=== PATIENT | male | born 1955 | race Caucasian/White ===

== ENCOUNTER 2018-04-29 11:41 | Inpatient (IN) ==
--- OUTSIDE RECORDS SUMMARY | 2018-04-29 16:00 | External Medical Summary | Clinical Summary ---
:1955 Author Organization [facility] Address [address] [place] [address] Care Team Providers Name Role Phone [facility] Primary Care Provider Allergies Active Allergy Reactions Severity Noted Date Comments Morphine Other (See Comments) Low 07/14/2014 Makes me "wig out: Current Medications Prescription Sig. Disp. Refills Start Date End Date Status Cholecalciferol (VITAMIN Take 1,000 Units Active D) 1000 UNITS TABS by mouth 2 (two) times daily. rosuvastatin (CRESTOR) 40 Take 40 mg by Active MG tablet mouth daily. 1/2 tab at bedtime cetirizine (ZYRTEC) 10 MG Take 10 mg by Active tablet mouth daily. potassium chloride Take 20 mEq by Active (KLOR-CON) 20 MEQ packet mouth daily. ranitidine (ZANTAC) 150 MG Take 150 mg by Active tablet mouth 2 (two) times daily. pantoprazole (PROTONIX) 40 Take 40 mg by Active MG tablet mouth 2 (two) times daily. DICLOFENAC PO Take 50 mg by Active mouth 2 (two) times daily. pregabalin (LYRICA) 100 MG Take 100 mg by Active capsule mouth 4 (four) times daily. aspirin 81 MG EC tablet Take 81 mg by Active mouth daily. zolpidem (AMBIEN) 10 MG Take 10 mg by Active tablet mouth nightly as needed for Sleep. traZODone (DESYREL) 50 MG Take 50 mg by Active tablet mouth nightly. 3 tabs at bedtime. hydrocodone-acetaminophen Take 1 tablet by Active (NORCO) 10-325 MG mouth every 6 (six) hours as needed for Pain. Active Problems Problem Noted Date Pain 07/14/2014 Social History Tobacco Use Types Packs/Day Years Used Date Light Tobacco Smoker Tobacco Cessation: Ready to Quit: No Alcohol Use Drinks/Week oz/Week Comments No Sex Assigned at Date Recorded Not on file Last Filed Vital Signs Vital Sign Reading Time Taken Blood Pressure 119/77 08/19/2014 10:44 AM [employer] Pulse 57 08/19/2014 10:44 AM [employer] Temperature - - Respiratory Rate - - Oxygen Saturation - - Inhaled Oxygen Concentration - - Weight 90.3 kg (199 lb) 08/19/2014 9:26 AM [employer] Height 175.3 cm (5' 9.02") 08/19/2014 9:26 AM [employer] Body Mass Index 29.37 08/19/2014 9:26 AM [employer] Plan of Treatment Health Maintenance Due Date Last Done Comments Hepatitis C Screening 1955 DTaP,Tdap,and Td Vaccines (1 - Tdap) 1973 Colon Cancer Screening 2004 Zoster Recombinant Vaccine (RZV,Shingrix) (1 of 2 - [facility] 2004 2 Dose Standard) Influenza Vaccine (#1) 2018 Results Not on filefrom Last 3 Months
--- OUTSIDE RECORDS SUMMARY | 2018-04-29 16:01 | External Medical Summary | Clinical Summary ---
:1955 Author Organization [facility] Address [address] [place] [address] Care Team Providers Name Role Phone Raegan Andera MD Unavailable Raegan Andrea MD Primary Care Provider Source Comments Some departments are not documenting in the electronic medical record. If you do not see the information that you expected, contact Release of Information in the Health Information Management department at [phone] for further assistance in locating additional records.[facility] Social History Tobacco Use Types Packs/Day Years Used Date Never Assessed Sex Assigned at Date Recorded Not on file Plan of Treatment Health Maintenance Due Date Last Done Comments HEPATITIS C SCREENING 1955 PHYSICAL (COMPREHENSIVE) EXAM 1961 PERTUSSIS VACCINE 1965 HIV SCREENING 1969 TETANUS VACCINE 1971 COLORECTAL CANCER SCREENING 2004 SHINGLES RECOMBINANT VACCINE (1 of 2) 2004 INFLUENZA VACCINE 07/01/2018
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
[2018-04-29 16:29] VITALS: BMI 20.1
[2018-04-29] MEDS ORDERED: SALIVA SUBSTITUTE MOUTHWASH 237ml PO PRN (16:41)
[2018-04-29] MEDS ORDERED: LIDOCAINE VISCOUS 2% ORAL LIQUID 15ml PO PRN (16:41)
[2018-04-29] MEDS: NYSTATIN 500,000 units/5 ml ORAL LIQUID PO SCH ×3 (17:00→20:52)
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
[2018-04-29] MEDS ORDERED: [UNRECOGNIZED DRUG - OTHER] LEFT EYE SCH (20:00)
[2018-04-29] MEDS: BALANCED SALT OP SCH ×2 (20:35→23:32)
[2018-04-29] MEDS: BACITRACIN OINT 15 GM TP SCH (20:36)
[2018-04-29] MEDS: LACRI-LUBE EYE OINT 3.5gm LEFT EYE SCH ×2 (20:36→23:32)
[2018-04-29] MEDS: INSULIN DETEMIR 100unit/ml INJECTION SQ SCH (20:37)
[2018-04-29] MEDS: CIPROFLOXACIN 750 MG TABLET PO SCH (20:37)
[2018-04-29] MEDS: MetroNIDAZOLE 500 MG TABLET PO SCH (20:37)
[2018-04-29] MEDS: OXYCODONE 10 MG/0.5 ML PEG PRN (20:45)
[2018-04-30] MEDS: OXYCODONE 10 MG/0.5 ML PEG PRN ×6 (00:30→21:13)
[2018-04-30] MEDS: BALANCED SALT OP SCH ×6 (04:12→23:22)
[2018-04-30] MEDS: LACRI-LUBE EYE OINT 3.5gm LEFT EYE SCH ×6 (04:13→23:23)
[2018-04-30] MEDS: BACITRACIN OINT 15 GM TP SCH ×3 (08:29→21:58)
[2018-04-30] MEDS: FLUCONAZOLE 100 MG TABLET PO SCH (08:32)
[2018-04-30] MEDS: NYSTATIN 500,000 units/5 ml ORAL LIQUID PO SCH ×4 (08:32→21:58)
[2018-04-30] MEDS: MetroNIDAZOLE 500 MG TABLET PO SCH ×2 (08:32→16:30)
[2018-04-30] MEDS: ASPIRIN 325 MG TABLET PO SCH (08:32)
[2018-04-30] MEDS: CIPROFLOXACIN 750 MG TABLET PO SCH ×2 (08:33→21:58)
[2018-04-30] MEDS: SERTRALINE 50 MG TABLET PO SCH (08:33)
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
[2018-04-30] MEDS: INSULIN DETEMIR 100unit/ml INJECTION SQ SCH (21:58)
[2018-05-01] MEDS: OXYCODONE 10 MG/0.5 ML PEG PRN ×6 (01:17→21:51)
[2018-05-01] MEDS: BALANCED SALT OP SCH ×5 (04:09→20:21)
[2018-05-01] MEDS: LACRI-LUBE EYE OINT 3.5gm LEFT EYE SCH ×5 (04:10→20:21)
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
--- NOTE | 2018-05-01 08:38 | General Surgery Progress Note ---
Subjective Patient reports: afebrile Narrative: He has been getting bolus g-tube feeds, the formula is leaking out the tube os. States the skin is tender and red around the opening. Denies nausea. Denies chest pain, SOA. - Vital Signs Last Vital Signs Temp 98.1 F 05/01/18 07:37 Pulse 64 05/01/18 07:37 Resp 18 05/01/18 07:37 BP 110/67 05/01/18 07:37 Pulse Ox 98 05/01/18 07:37 - Laboratory Result Diagrams: 04/30/18 04:21 04/30/18 04:21 - Abnormal Exam Eyes: other (patch over the left eye, states he sees only shadows from the left eye) Abdominal: other (Formula bubbling out of g-tube fistula when sitting and the ABD saturated with formula. When supine leakage stopped long enough to "fix" the tube leaking problem. Flange/disc is at the "7" level, balloon checked and did have 6 ml fluid per G-tube label for this particular gastostomy tube. Skin red and excoriated about 2 cm radius around the tube. Tender when washed. ) Additional Abnormal Findings: maxillofacial flap/graft with some sutures visible, face misshapen with concavity on the left - Normal Exam General: awake, alert, oriented, no acute distress Neck: other (old tracheostomy site healed) Respiratory: clear bilaterally, no labored breathing Abdominal: soft Psychiatric: normal affect Assessment and Plan (1) Attention to gastrostomy tube Current Visit: Yes Status: Acute (2) Dysphagia Current Visit: Yes Status: Acute Qualifiers: Dysphagia type: oral phase Qualified Code(s): R13.11 - Dysphagia, oral phase Plan: The flange/disc of the G-tube had migrated up the tube to the 7 level. This should be at the 4-4.5 level to provide a seal between the balloon and the flange, and umbilical tape used to try to secure the flange/disc at the "4" level. Skin washed and Calmoseptine applied then single layer gauze around the G-Tube. Will have nursing treat with Calmoseptine BID and watch for flange migration. If there continues to be problems with leakage, we can consider changing the G- tube (since it is not a PEG) out for one that is slightly bigger and has a 10 ml balloon. Continue tube feeds and activity as directed. Will check on him periodically during his stay, and please call if concerns arise. Hospital Course Summary Disclaimer: The visit summary below is not to be considered part of the above Progress Note. Hospital Course: 04/29/18 Agree with admission/orders per Dr. Stone. Tube feeds: Bolus feeds, 1 can 2-Aroldo HN with 2 packets of Beneprotein QID. Monitor blood sugars. Alexeiemshalonda HS. Diet: NPO except for swishes and expectoration. Surgeon recommends waiting at least 2 more weeks before attempting oral intake. The edges of the flap need to be completely sealed down before oral intake occurs. Nystatin for thrush. Resume chlorhexidine when thrush improves. Neb treatments PRN Oral care Q2h, eye care Q4h Zoloft for depression.
[2018-05-01] MEDS: BACITRACIN OINT 15 GM TP SCH ×2 (09:40→20:24)
[2018-05-01] MEDS: MetroNIDAZOLE 500 MG TABLET PO SCH ×2 (09:40→18:06)
[2018-05-01] MEDS: ASPIRIN 325 MG TABLET PO SCH (09:40)
[2018-05-01] MEDS: CIPROFLOXACIN 750 MG TABLET PO SCH ×2 (09:41→21:27)
[2018-05-01] MEDS: FLUCONAZOLE 100 MG TABLET PO SCH (09:42)
[2018-05-01] MEDS: NYSTATIN 500,000 units/5 ml ORAL LIQUID PO SCH ×4 (09:42→20:23)
[2018-05-01] MEDS: SERTRALINE 50 MG TABLET PO SCH (09:42)
[2018-05-01] MEDS: CALMOSEPTINE OINTMENT 113gm TUBE TP SCH ×2 (09:45→21:27)
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
[2018-05-01] MEDS: CHLORHEXIDINE 0.12% ORAL RINSE MM SCH ×3 (16:34→21:26)
[2018-05-01] MEDS: INSULIN DETEMIR 100unit/ml INJECTION SQ SCH (21:51)
[2018-05-02] MEDS: CHLORHEXIDINE 0.12% ORAL RINSE MM SCH ×12 (00:42→23:05)
[2018-05-02] MEDS: BALANCED SALT OP SCH ×8 (00:43→20:45)
[2018-05-02] MEDS: LACRI-LUBE EYE OINT 3.5gm LEFT EYE SCH ×8 (00:43→20:45)
[2018-05-02] MEDS: OXYCODONE 10 MG/0.5 ML PEG PRN ×6 (01:52→23:06)
--- NOTE | 2018-05-02 08:16 | General Surgery Progress Note ---
Subjective Narrative: He states the g-tube is working better, minimal to no leaking of formula. The area under the flange is ammonia distiller when the Calmoseptine "wears off." - Vital Signs Last Vital Signs Temp 97.7 F 05/02/18 07:41 Pulse 56 L 05/02/18 07:41 Resp 18 05/02/18 07:41 BP 126/59 05/02/18 07:41 Pulse Ox 91 05/02/18 07:41 - Laboratory Result Diagrams: 04/30/18 04:21 04/30/18 04:21 - Abnormal Exam Eyes: other (patch over the left eye) Skin: maxillofacial deformities unchanged - Normal Exam General: oriented, resting, awakens easily, no acute distress Cardiovascular: regular rate Respiratory: no labored breathing Abdominal: other (gauze at g-tube site about 1/2 saturated with combination Calmoseptine and perhaps some formula. The Calmoseptine is "thinner" than the original and soaks into the gauze to some extent. Area of excoriation is decreaseing, perhaps only 1 cm radius from the tube now and superficial abrasion has already seen significant improvement.) Psychiatric: normal affect Assessment and Plan (1) Attention to gastrostomy tube Current Visit: Yes Status: Acute (2) Dysphagia Current Visit: Yes Status: Acute Qualifiers: Dysphagia type: oral phase Qualified Code(s): R13.11 - Dysphagia, oral phase Plan: "Tightening up" the g-tube seems to have taken care of the formula leaking, with very minimal if any leakage. If the leaking does not completely stop we can still replace the g-tube with a slightly larger tube with a larger balloon if needed. Continue BID cleansing and Calmoseptine and a single layer of gauze around the tube. Hospital Course Summary Disclaimer: The visit summary below is not to be considered part of the above Progress Note. Hospital Course: 04/29/18 Agree with admission/orders per Dr. Stone. Tube feeds: Bolus feeds, 1 can 2-Aroldo HN with 2 packets of Beneprotein QID. Monitor blood sugars. Levemir HS. Diet: NPO except for swishes and expectoration. Surgeon recommends waiting at least 2 more weeks before attempting oral intake. The edges of the flap need to be completely sealed down before oral intake occurs. Nystatin for thrush. Resume chlorhexidine when thrush improves. Neb treatments PRN Oral care Q2h, eye care Q4h Zoloft for depression.
[2018-05-02] MEDS: MetroNIDAZOLE 500 MG TABLET PO SCH ×2 (10:09→18:30)
[2018-05-02] MEDS: CIPROFLOXACIN 750 MG TABLET PO SCH ×2 (10:09→20:45)
[2018-05-02] MEDS: FLUCONAZOLE 100 MG TABLET PO SCH (10:09)
[2018-05-02] MEDS: SERTRALINE 50 MG TABLET PO SCH (10:09)
[2018-05-02] MEDS: ASPIRIN 325 MG TABLET PO SCH (10:09)
[2018-05-02] MEDS: CALMOSEPTINE OINTMENT 113gm TUBE TP SCH ×2 (10:10→20:46)
[2018-05-02] MEDS: BACITRACIN OINT 15 GM TP SCH ×2 (10:10→20:45)
[2018-05-02] MEDS: NYSTATIN 500,000 units/5 ml ORAL LIQUID PO SCH ×5 (10:10→23:00)
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
--- NOTE | 2018-05-02 15:30 | IRU Team Meeting ---
IRU Team Meeting - Nursing Bladder Management Level of Assist: Independent Bladder Frequency of Accidents: No accidents Bowel Assistive Devices Utilized:: Medication Bowel Management Level of Assist: Modified Independent Bowel Frequency of Accidents: No accidents Vital Signs: Vital Signs - 24 hr 05/01/18 16:00 05/01/18 22:01 05/02/18 07:41 Temperature 97.6 F 98.1 F 97.7 F Pulse Rate 58 L 51 L 56 L Respiratory Rate 18 Blood Pressure 96/65 98/57 126/59 Pulse Oximetry 98 91 91 Current Medications: Aspirin (Asa) 325 mg PO DAILY [facility] Last Admin: 05/02/18 10:09 Dose: 325 mg Bacitracin (Bacitracin Oint) 1 applic TP BID [facility] Last Admin: 05/02/18 10:10 Dose: Not Given Calamine/Phenol (Risamine Oint) 1 applic TP BID [facility] Last Admin: 05/02/18 10:10 Dose: 1 applic Chlorhexidine Gluconate (Peridex) 15 ml MM Q2HR [facility] Last Admin: 05/02/18 14:14 Dose: Not Given Ciprofloxacin (Cipro 750 Mg) 750 mg PO BID [facility] Last Admin: 05/02/18 10:09 Dose: 750 mg Fluconazole (Diflucan 100 Mg Tablet) 200 mg PO DAILY [facility] Last Admin: 05/02/18 10:09 Dose: 200 mg Insulin Detemir (Levemir) 8 unit SQ HS [facility] Last Admin: 05/01/18 21:51 Dose: 8 unit Lidocaine HCl (Xylocaine Viscous 2%) 15 ml PO Q2HR PRN PRN Reason: Pain Metronidazole (Flagyl) 500 mg PO BIDWM [facility] Last Admin: 05/02/18 10:09 Dose: 500 mg Multi-Ingredient Lotion (Lacrilube) 1 applic LEFT EYE Q4HR [facility] Last Admin: 05/02/18 13:27 Dose: 1 applic Nystatin (Mycostatin) 5 ml PO QID [facility] Last Admin: 05/02/18 13:27 Dose: Not Given Oxycodone/Acetaminophen (Oxycodone Oral Liquid) 20 mg PEG Q4H PRN PRN Reason: Pain Last Admin: 05/02/18 14:40 Dose: 20 mg Saliva Substitute (Biotene Dry Mouth Oral Rinse) 1 ml PO Q4HR PRN PRN Reason: Dry mouth Last Admin: 05/01/18 16:33 Dose: 1 ml Sertraline HCl (Zoloft) 50 mg PO DAILY [facility] Last Admin: 05/02/18 10:09 Dose: 50 mg Sod Cl/Ca Cl/Mg Cl/Pot Cl (Bss) 15 ml OP Q4HR [facility] Last Admin: 05/02/18 13:27 Dose: 15 ml Zolpidem Tartrate (Ambien) 5 mg PO HS PRN PRN Reason: Insomnia Current Medical Issues: Multiple wounds, multiple fractures which are healing, skin flap on the floor of mouth, pain in face secondary to multiple fractures Comments: I certify that I personally led the interdisciplinary team meeting and agree with comments, barriers and goals indicated. Team meeting was held in the patient's room with the patient and the following family members present: patient alone Mr. Osorio is refusing oral rinses including nystatin and chlorhexidine. He continues to request pain medication for his multiple fractures in his face. Wounds are looking okay. Cooperative with therapy. PEG tube started to leak but that was addressed with surgery and no further leakage noted. Tolerating tube feedings adequately. - Dietary Dietary is addressing issues with regard to his tube feedings. Seems to be tolerating these well. Weight by report is down 30 pounds since January prior to hospitalization. He is receiving approximately 2375 halle with 99.5 g of protein. - Speech Therapy Speech therapy working with patient. He has required some encouragement to participate. He is able to complete his tasks appropriately with only minimal assistance. Patient not safe for swallowing. - Physical Therapy Bed, Chair, Wheelchair Transfer Assist: Stand By Assist/Supervision Ambulation Ability: Contact Guard Assistance Ambulation Distance: 500 Stair Climbing Ability: Contact Guard Assistance Number of Steps Climbed: 12 Car Transfer Ability: Contact Guard Assistance Comments: Patient is concerned about his strength. He is exhibiting several episodes of loss of balance with ambulation. - Occupational Therapy Eating Ability: Maximal Assistance Grooming Ability: Patient Refuses Bathing Ability: Stand By Assist/Supervision Upper Body Dressing Ability: Independent Lower Body Dressing Ability: Stand By Assist/Supervision Tub Transfer Assist: Contact Guard Assistance Toileting Assist: Stand By Assist/Supervision Toilet Transfer Assist: Stand By Assist/Supervision Comments: Patient requires encouragement to participate in ADL tasks. He is displaying episodes of loss of balance particularly in the bathroom. - Goals Physical Therapy Goals: 05/02/18: 1.) Modified Mayo with all transfers and ambulation with least restrictive device. 2.) Score of 50/56 on ARIAS balance assessment. Occupational Therapy Goals: OT goals: 1.) Lower body dressing tasks independently. 2.) Laundry tasks w/ modified independence. Speech Therapy Goals: Expression: STG: Patient will provide 3 specific words to describe a given picture or event requiring minimal cues to word retrieval. Pt will define abstract words/concepts with 80% accuracy requiring minimal cues to expansion. Memory: STG: The patient will recall functional information following a delayed and immediate recall requiring minimal cues to increase accuracy. Pt will recall information discussed in therapy by retelling and answering questions with 80% accuracy and requiring minimal cues. - Barriers to Discharge Barriers to Attaining Goals: Balance (proprioceptive and balance exercises are offered to address imbalance.), Other (education provided with regard to wound care, diabetic management including administration of insulin, and tube feeding management. Reduced safety awareness addressed via education.) - Care Plan Anticipated Length of Stay (days): 5 Anticipated DC Destination: Home, Self Care, Home Health Service I have led this team conference and agree with the plan. Interventions/Goals: Patient continues to require PT and OT to address loss of balance episodes. Wounds appear to be healing adequately. Anticipate he will be stable for dismissal early next week. However he continues to require significant educational input and encouragement to address low motivation.
[2018-05-02] MEDS: INSULIN DETEMIR 100unit/ml INJECTION SQ SCH (20:46)
[2018-05-02] MEDS: ZOLPIDEM 5 MG TABLET PO PRN (22:33)
[2018-05-03] MEDS: CHLORHEXIDINE 0.12% ORAL RINSE MM SCH ×10 (02:03→20:55)
[2018-05-03] MEDS: BALANCED SALT OP SCH ×6 (02:03→20:57)
[2018-05-03] MEDS: LACRI-LUBE EYE OINT 3.5gm LEFT EYE SCH ×6 (02:03→20:55)
[2018-05-03] MEDS: OXYCODONE 10 MG/0.5 ML PEG PRN ×4 (05:44→19:54)
[2018-05-03] MEDS: MetroNIDAZOLE 500 MG TABLET PO SCH ×2 (10:38→18:37)
[2018-05-03] MEDS: FLUCONAZOLE 100 MG TABLET PO SCH (10:38)
[2018-05-03] MEDS: SERTRALINE 50 MG TABLET PO SCH (10:38)
[2018-05-03] MEDS: CIPROFLOXACIN 750 MG TABLET PO SCH ×2 (10:38→20:57)
[2018-05-03] MEDS: NYSTATIN 500,000 units/5 ml ORAL LIQUID PO SCH ×4 (10:39→20:57)
[2018-05-03] MEDS: ASPIRIN 325 MG TABLET PO SCH (10:39)
[2018-05-03] MEDS: BACITRACIN OINT 15 GM TP SCH ×2 (10:41→20:55)
[2018-05-03] MEDS: CALMOSEPTINE OINTMENT 113gm TUBE TP SCH ×2 (10:43→20:55)
--- NOTE | 2018-05-03 11:12 | Wound Care Progress Note ---
Wound Center Progress Note: Pt seen for wound follow up. Pt lying in bed. Pt reports his face hurts and it is very hard to keep the packing in to the L mandible wound. León GUERRERO in room assessing pt, states she will change the packing dressing today.
--- NOTE | 2018-05-03 13:48 | Wound Care Progress Note ---
Wound Center Progress Note: Pt seen for wound follow up. Nursing staff called to wound center reporting difficulty with packing L mandible wound. Pt just finishing up with OT, placed in bed for wound assessment. L mandible: improving, area cleaned/crusts removed , lightly packed with 1/4" saline moistened packing strips (approximally 4-5 " strip) covered with small mepilex. Change dressing per order BID.
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
[2018-05-03] MEDS: INSULIN DETEMIR 100unit/ml INJECTION SQ SCH (20:57)
[2018-05-03] MEDS: ZOLPIDEM 5 MG TABLET PO PRN (21:15)
[2018-05-04] MEDS: CHLORHEXIDINE 0.12% ORAL RINSE MM SCH ×12 (00:42→20:41)
[2018-05-04] MEDS: OXYCODONE 10 MG/0.5 ML PEG PRN ×5 (00:43→21:02)
[2018-05-04] MEDS: LACRI-LUBE EYE OINT 3.5gm LEFT EYE SCH ×6 (00:45→20:47)
[2018-05-04] MEDS: BALANCED SALT OP SCH ×7 (00:45→20:46)
[2018-05-04] MEDS: MetroNIDAZOLE 500 MG TABLET PO SCH ×2 (10:32→18:20)
[2018-05-04] MEDS: NYSTATIN 500,000 units/5 ml ORAL LIQUID PO SCH ×4 (10:33→20:43)
[2018-05-04] MEDS: ASPIRIN 325 MG TABLET PO SCH (10:33)
[2018-05-04] MEDS: CIPROFLOXACIN 750 MG TABLET PO SCH ×2 (10:33→20:47)
[2018-05-04] MEDS: SERTRALINE 50 MG TABLET PO SCH (10:33)
[2018-05-04] MEDS: FLUCONAZOLE 100 MG TABLET PO SCH (10:33)
[2018-05-04] MEDS: BACITRACIN OINT 15 GM TP SCH ×2 (10:34→20:47)
[2018-05-04] MEDS: CALMOSEPTINE OINTMENT 113gm TUBE TP SCH ×2 (10:34→20:38)
[2018-05-04] MEDS ORDERED: PROMETHAZINE 25 MG SUPPOSITORY PR PRN (14:34)
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
[2018-05-04] MEDS: INSULIN DETEMIR 100unit/ml INJECTION SQ SCH (20:45)
[2018-05-04] MEDS: ZOLPIDEM 5 MG TABLET PO PRN (21:02)
[2018-05-05] MEDS: BALANCED SALT OP SCH ×6 (01:06→21:37)
[2018-05-05] MEDS: CHLORHEXIDINE 0.12% ORAL RINSE MM SCH ×13 (01:06→23:00)
[2018-05-05] MEDS: LACRI-LUBE EYE OINT 3.5gm LEFT EYE SCH ×6 (01:06→21:37)
[2018-05-05] MEDS: OXYCODONE 10 MG/0.5 ML PEG PRN ×5 (01:12→21:41)
[2018-05-05] MEDS: PANTOPRAZOLE 40 MG TABLET PEG SCH ×2 (05:18→06:25)
[2018-05-05] MEDS ORDERED: PANTOPRAZOLE 40 MG INJECTION IVP SCH (09:00)
[2018-05-05] MEDS: NYSTATIN 500,000 units/5 ml ORAL LIQUID PO SCH ×4 (09:35→21:35)
[2018-05-05] MEDS: FLUCONAZOLE 100 MG TABLET PO SCH (09:35)
[2018-05-05] MEDS: ASPIRIN 325 MG TABLET PO SCH (09:35)
[2018-05-05] MEDS: SERTRALINE 50 MG TABLET PO SCH (09:35)
[2018-05-05] MEDS: CIPROFLOXACIN 750 MG TABLET PO SCH ×2 (09:36→21:41)
[2018-05-05] MEDS: BACITRACIN OINT 15 GM TP SCH ×2 (09:36→21:38)
[2018-05-05] MEDS: CALMOSEPTINE OINTMENT 113gm TUBE TP SCH ×2 (09:36→21:36)
[2018-05-05] MEDS: MetroNIDAZOLE 500 MG TABLET PO SCH ×2 (09:36→17:57)
--- NOTE | 2018-05-05 14:32 | XRay Report ---
INDICATION: cough PROCEDURE: CHEST 2-VIEWS UPRIGHT (PA & LAT) Encounter: Initial COMPARISON: None FINDINGS: The lungs are clear without evidence of focal abnormal airspace opacity. There is no pleural effusion or pneumothorax. The heart size, mediastinal contours and pulmonary vascularity are within normal limits. IMPRESSION: No acute cardiopulmonary disease. .
[2018-05-05] MEDS: INSULIN DETEMIR 100unit/ml INJECTION SQ SCH (21:39)
[2018-05-05] MEDS: ZOLPIDEM 5 MG TABLET PO PRN (21:43)
[2018-05-06] MEDS: CHLORHEXIDINE 0.12% ORAL RINSE MM SCH ×12 (01:00→21:34)
[2018-05-06] MEDS: LACRI-LUBE EYE OINT 3.5gm LEFT EYE SCH ×6 (03:15→20:24)
[2018-05-06] MEDS: BALANCED SALT OP SCH ×6 (03:15→20:25)
[2018-05-06] MEDS: PANTOPRAZOLE 40 MG TABLET PEG SCH (06:45)
[2018-05-06] MEDS: OXYCODONE 10 MG/0.5 ML PEG PRN ×4 (06:45→21:41)
[2018-05-06] MEDS: CALMOSEPTINE OINTMENT 113gm TUBE TP SCH ×3 (06:59→20:26)
[2018-05-06] MEDS: FLUCONAZOLE 100 MG TABLET PO SCH (09:47)
[2018-05-06] MEDS: NYSTATIN 500,000 units/5 ml ORAL LIQUID PO SCH ×4 (09:47→21:34)
[2018-05-06] MEDS: MetroNIDAZOLE 500 MG TABLET PO SCH ×2 (09:47→18:36)
[2018-05-06] MEDS: CIPROFLOXACIN 750 MG TABLET PO SCH ×2 (09:47→20:30)
[2018-05-06] MEDS: ASPIRIN 325 MG TABLET PO SCH (09:47)
[2018-05-06] MEDS: SERTRALINE 50 MG TABLET PO SCH (09:47)
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
[2018-05-06] MEDS: BACITRACIN OINT 15 GM TP SCH ×2 (11:42→21:33)
--- NOTE | 2018-05-06 15:18 | Wound Care Progress Note ---
Wound Center Progress Note: Pt seen for wound care follow up. Pt lying in bed, states his jaw is sore. According to nurse pt has been refusing dressing changes to L mandible. Pt agreed to have dressing changed today. L mandible: Wound cleaned with NS, crusts removed. Lightly packed with saline moistened 1/4" plain packing gauze, covered with Mepilex. Change dressing per order. 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
[2018-05-06] MEDS: INSULIN DETEMIR 100unit/ml INJECTION SQ SCH (20:27)
[2018-05-06] MEDS: ZOLPIDEM 5 MG TABLET PO PRN (21:35)
[2018-05-07] MEDS: CHLORHEXIDINE 0.12% ORAL RINSE MM SCH ×12 (00:05→23:00)
[2018-05-07] MEDS: LACRI-LUBE EYE OINT 3.5gm LEFT EYE SCH ×6 (00:46→21:42)
[2018-05-07] MEDS: BALANCED SALT OP SCH ×6 (00:46→21:42)
[2018-05-07] MEDS: OXYCODONE 10 MG/0.5 ML PEG PRN ×4 (01:49→21:45)
[2018-05-07] MEDS: PANTOPRAZOLE 40 MG TABLET PEG SCH (05:54)
[2018-05-07] MEDS: BACITRACIN OINT 15 GM TP SCH ×2 (08:57→21:43)
[2018-05-07] MEDS: ASPIRIN 325 MG TABLET PO SCH (08:58)
[2018-05-07] MEDS: NYSTATIN 500,000 units/5 ml ORAL LIQUID PO SCH ×4 (08:58→21:43)
[2018-05-07] MEDS: SERTRALINE 50 MG TABLET PO SCH (08:58)
[2018-05-07] MEDS: MetroNIDAZOLE 500 MG TABLET PO SCH ×2 (08:58→18:03)
[2018-05-07] MEDS: CIPROFLOXACIN 750 MG TABLET PO SCH ×2 (08:58→21:43)
[2018-05-07] MEDS: FLUCONAZOLE 100 MG TABLET PO SCH (08:58)
[2018-05-07] MEDS: CALMOSEPTINE OINTMENT 113gm TUBE TP SCH ×2 (08:59→21:43)
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
--- NOTE | 2018-05-07 10:40 | General Surgery Progress Note ---
Subjective Narrative: Patient is without any new complaints today. He states that the leakage from the gastrostomy tube is minimal and occurs infrequently. He still experiences some irritation around the gastrostomy opening. Staff are treating this with Calmoseptine as directed. - Vital Signs Last Vital Signs Temp 98.4 F 05/07/18 07:32 Pulse 62 05/07/18 07:32 Resp 16 05/07/18 07:32 BP 121/61 05/07/18 07:32 Pulse Ox 96 05/07/18 07:32 - Laboratory Result Diagrams: 05/04/18 15:10 05/04/18 15:10 - Abnormal Exam Eyes: other (patch over the left eye) Abdominal: other (gastrostomy tube disc has migrated up to almost the 5.5-6 level. I was able to slide the flange back down to level 4. Slight erythema around the gastrostomy tube but no actual skin breakdown.) Skin: No change in maxillofacial deformity. - Normal Exam General: awake, alert, oriented Respiratory: no labored breathing Abdominal: soft, non-tender Psychiatric: normal affect Assessment and Plan (1) Attention to gastrostomy tube Current Visit: Yes Status: Acute (2) Dysphagia Current Visit: Yes Status: Acute Qualifiers: Dysphagia type: oral phase Qualified Code(s): R13.11 - Dysphagia, oral phase Plan: The flange of the gastrostomy tube migrated "up the tube" and I was able to work if flange down to skin level again at level 4. The excoriation around the tube is improving with Calmoseptine. We'll just need to check the tube and try and keep the flange down The "4 level. " Hospital Course Summary Disclaimer: The visit summary below is not to be considered part of the above Progress Note. Hospital Course: 04/29/18 Agree with admission/orders per Dr. Stone. Tube feeds: Bolus feeds, 1 can 2-Aroldo HN with 2 packets of Beneprotein QID. Monitor blood sugars. Levemir HS. Diet: NPO except for swishes and expectoration. Surgeon recommends waiting at least 2 more weeks before attempting oral intake. The edges of the flap need to be completely sealed down before oral intake occurs. Nystatin for thrush. Resume chlorhexidine when thrush improves. Neb treatments PRN Oral care Q2h, eye care Q4h Zoloft for depression. 05/04/18 Nausea, weakness, cough -- labs ordered, along with UA and CXR. CBC, CMP both stable CXR personally reviewed - no infiltrates noted May have phenergan suppository PRN nausea.
--- NOTE | 2018-05-07 14:31 | Progress Note ---
Progress Note: Mr. Osorio is been refusing therapy. I discussed with him his current emotional situation/states. He says he continues to be somewhat depressed as well as not sure what the future holds. In view of his recent impulsive suicide attempt as well as his depression, we will ask psychiatry to evaluate him.
[2018-05-07] MEDS: INSULIN DETEMIR 100unit/ml INJECTION SQ SCH (21:44)
[2018-05-07] MEDS: ZOLPIDEM 5 MG TABLET PO PRN (21:45)
[2018-05-08] MEDS: CHLORHEXIDINE 0.12% ORAL RINSE MM SCH ×11 (01:00→21:34)
[2018-05-08] MEDS: OXYCODONE 10 MG/0.5 ML PEG PRN ×5 (04:19→21:51)
[2018-05-08] MEDS: PANTOPRAZOLE 40 MG TABLET PEG SCH (06:33)
[2018-05-08] MEDS: LACRI-LUBE EYE OINT 3.5gm LEFT EYE SCH ×6 (06:37→20:18)
[2018-05-08] MEDS: BALANCED SALT OP SCH ×6 (06:37→20:17)
[2018-05-08] MEDS: NYSTATIN 500,000 units/5 ml ORAL LIQUID PO SCH ×4 (09:00→21:35)
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
[2018-05-08] MEDS: ASPIRIN 325 MG TABLET PO SCH (10:40)
[2018-05-08] MEDS: BACITRACIN OINT 15 GM TP SCH ×2 (10:40→20:16)
[2018-05-08] MEDS: CIPROFLOXACIN 750 MG TABLET PO SCH ×2 (10:40→20:19)
[2018-05-08] MEDS: MetroNIDAZOLE 500 MG TABLET PO SCH ×2 (10:40→18:12)
[2018-05-08] MEDS: FLUCONAZOLE 100 MG TABLET PO SCH (10:40)
[2018-05-08] MEDS: CALMOSEPTINE OINTMENT 113gm TUBE TP SCH ×2 (10:40→20:17)
[2018-05-08] MEDS: SERTRALINE 50 MG TABLET PO SCH (10:40)
--- NOTE | 2018-05-08 10:57 | Progress Note ---
Progress Note: Patient evaluated by psychiatry. Patient is not feeling well physically today. Recommend increasing Zoloft to 100mg PO daily after GI upset and nausea/emesis has resolved (as SSRIs can exacerbate this). Also, strongly recommend continued psychiatric care and therapy weekly or every 2 weeks after discharge as he has not had any since leaving the medical hospital and this will be essential for his mental health. Will complete full note later today.
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
--- NOTE | 2018-05-08 15:44 | XRay Report ---
Indication: abd pain with tube feedings PROCEDURE: XR abdomen 2V: Encounter: Initial Comparison: None Findings: Lung bases are grossly clear. No free air. Gastrostomy tube projecting over the body of the stomach. Surgical clips in the medial right abdomen. The bowel gas pattern is nonobstructive and nonspecific. Scattered nondifferential air-fluid levels seen within the colon. Impression: Possible ileus or gastroenteritis. Contrast injection under fluoroscopy could be performed through the gastrostomy tube if there is concern for tube dislodgment or displacement. .
[2018-05-08] MEDS: METOCLOPRAMIDE 5mg TABLET PEG SCH ×2 (18:12→20:19)
[2018-05-08] MEDS: INSULIN DETEMIR 100unit/ml INJECTION SQ SCH (20:19)
[2018-05-08] MEDS: ZOLPIDEM 5 MG TABLET PO PRN (21:51)
[2018-05-09] MEDS: CHLORHEXIDINE 0.12% ORAL RINSE MM SCH ×12 (00:26→21:22)
[2018-05-09] MEDS: LACRI-LUBE EYE OINT 3.5gm LEFT EYE SCH ×6 (00:26→21:29)
[2018-05-09] MEDS: BALANCED SALT OP SCH ×6 (00:26→21:29)
[2018-05-09] MEDS: OXYCODONE 10 MG/0.5 ML PEG PRN ×4 (04:25→21:31)
[2018-05-09] MEDS: PANTOPRAZOLE 40 MG TABLET PEG SCH (06:05)
[2018-05-09] MEDS: METOCLOPRAMIDE 5mg TABLET PEG SCH ×4 (06:05→15:18)
[2018-05-09] MEDS: MetroNIDAZOLE 500 MG TABLET PO SCH ×2 (08:57→17:30)
[2018-05-09] MEDS: CIPROFLOXACIN 750 MG TABLET PO SCH ×2 (08:58→21:30)
[2018-05-09] MEDS: ASPIRIN 325 MG TABLET PO SCH (08:58)
[2018-05-09] MEDS: FLUCONAZOLE 100 MG TABLET PO SCH (08:58)
[2018-05-09] MEDS: CALMOSEPTINE OINTMENT 113gm TUBE TP SCH ×2 (09:03→21:30)
--- NOTE | 2018-05-09 09:05 | Progress Note ---
Progress Note: Elevated potassium (5.3), specimen was hemolyzed. Repeat K+ later this afternoon. Remainder of labs and vitals are stable.
[2018-05-09] MEDS: SERTRALINE 50 MG TABLET PO SCH (09:12)
[2018-05-09] MEDS: NYSTATIN 500,000 units/5 ml ORAL LIQUID PO SCH ×4 (09:12→21:22)
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
[2018-05-09] MEDS: BACITRACIN OINT 15 GM TP SCH ×2 (11:55→21:29)
--- NOTE | 2018-05-09 13:12 | IRU Team Meeting ---
IRU Team Meeting - Nursing Bladder Management Level of Assist: Independent Bladder Frequency of Accidents: No accidents Bowel Assistive Devices Utilized:: Medication Bowel Management Level of Assist: Independent Bowel Frequency of Accidents: No accidents Vital Signs: Vital Signs - 24 hr 05/08/18 15:44 05/08/18 19:23 05/09/18 08:00 Temperature 97.6 F 97.8 F 97.6 F Pulse Rate 62 80 58 L Respiratory Rate 18 16 14 Blood Pressure 129/70 121/65 105/61 Pulse Oximetry 96 95 96 Current Medications: Aspirin (Asa) 325 mg PO DAILY [facility] Last Admin: 05/09/18 08:58 Dose: 325 mg Bacitracin (Bacitracin Oint) 1 applic TP BID [facility] Last Admin: 05/09/18 11:55 Dose: 1 applic Calamine/Phenol (Risamine Oint) 1 applic TP BID [facility] Last Admin: 05/09/18 09:03 Dose: 1 applic Chlorhexidine Gluconate (Peridex) 15 ml MM Q2HR [facility] Last Admin: 05/09/18 11:58 Dose: Not Given Ciprofloxacin (Cipro 750 Mg) 750 mg PO BID [facility] Last Admin: 05/09/18 08:58 Dose: 750 mg Fluconazole (Diflucan 100 Mg Tablet) 200 mg PO DAILY [facility] Last Admin: 05/09/18 08:58 Dose: 200 mg Insulin Detemir (Levemir) 8 unit SQ HS [facility] Last Admin: 05/08/18 20:19 Dose: 8 unit Lidocaine HCl (Xylocaine Viscous 2%) 15 ml PO Q2HR PRN PRN Reason: Pain Metoclopramide HCl (Reglan) 5 mg PEG ACHS [facility] Last Admin: 05/09/18 11:52 Dose: Not Given Metronidazole (Flagyl) 500 mg PO BIDWM [facility] Last Admin: 05/09/18 08:57 Dose: 500 mg Multi-Ingredient Lotion (Lacrilube) 1 applic LEFT EYE Q4HR [facility] Last Admin: 05/09/18 11:57 Dose: 1 applic Nystatin (Mycostatin) 5 ml PO QID [facility] Last Admin: 05/09/18 09:12 Dose: Not Given Oxycodone/Acetaminophen (Oxycodone Oral Liquid) 20 mg PEG Q4H PRN PRN Reason: Pain Last Admin: 05/09/18 12:10 Dose: 20 mg Pantoprazole Sodium (Protonix Tab) 40 mg PEG ACB [facility] Last Admin: 05/09/18 06:05 Dose: 40 mg Promethazine HCl (Phenergan Supp) 25 mg SD Q6H PRN Saliva Substitute (Biotene Dry Mouth Oral Rinse) 1 ml PO Q4HR PRN PRN Reason: Dry mouth Last Admin: 05/01/18 16:33 Dose: 1 ml Sertraline HCl (Zoloft) 50 mg PO DAILY [facility] Last Admin: 05/09/18 09:12 Dose: 50 mg Sod Cl/Ca Cl/Mg Cl/Pot Cl (Bss) 15 ml OP Q4HR [facility] Last Admin: 05/09/18 11:57 Dose: 15 ml Zolpidem Tartrate (Ambien) 5 mg PO HS PRN PRN Reason: Insomnia Last Admin: 05/08/18 21:51 Dose: 5 mg Current Medical Issues: Dysphagia with requirement for tube feedings, wound healing on left lower mandible and left eye area, graft healing on floor of mouth, diabetes requiring insulin Comments: I certify that I personally led the interdisciplinary team meeting and agree with comments, barriers and goals indicated. Team meeting was held in the patient's room with the patient and the following family members present: patient alone Mr. Osorio is struggling with nausea and dry heaves with tube feedings. This was present about 4 or 5 days ago then improved after we reduced the amount of free water given. It then has recurred over the last 24-36 hours. However, he is having bowel movements and has had no vomiting. There is no abdominal pain. Residual tube feeding is minimal. We will treat with slow installation of tube feedings along with the use of Zofran. Blood sugars typically less than 200. - Speech Therapy Speech therapy discontinued patient as of 05/08/2018. - Physical Therapy Bed, Chair, Wheelchair Transfer Assist: Modified Independent Ambulation Ability: Modified Independent Ambulation Distance: 500 Stair Climbing Ability: Stand By Assist/Supervision Number of Steps Climbed: 12 Car Transfer Ability: Stand By Assist/Supervision Comments: Patient is variably compliant with physical therapy. He is able to ambulate with a front-wheeled walker indefinitely. Poor safety awareness and impulsiveness are noted. Verbal cues are provided in this regard. - Occupational Therapy Eating Ability: Total Assistance Grooming Ability: Patient Refuses Bathing Ability: Stand By Assist/Supervision Upper Body Dressing Ability: Independent Lower Body Dressing Ability: Independent Tub Transfer Assist: Patient Refuses Toileting Assist: Patient Refuses Toilet Transfer Assist: Patient Refuses Comments: Patient has refused much of occupational therapy. He is not cooperative. - Goals Physical Therapy Goals: 05/02/18: 1.) Modified Wheeler with all transfers and ambulation with least restrictive device. - met. 2.) Score of 50/56 on ARIAS balance assessment. - not met, declines. 05/09/18: 1.) Participate in 90 minutes of therapy. Occupational Therapy Goals: OT goals 05/09/18: 1.) Lower body dressing tasks independently.- goal met. 2.) Laundry tasks w/ modified independence. - continue (not attempted). 3.) Identify 2 leisure/hobbies Speech Therapy Goals: Expression: STG: Patient will provide 3 specific words to describe a given picture or event requiring minimal cues to word retrieval. Pt will define abstract words/concepts with 80% accuracy requiring minimal cues to expansion. Memory: STG: The patient will recall functional information following a delayed and immediate recall requiring minimal cues to increase accuracy. Pt will recall information discussed in therapy by retelling and answering questions with 80% accuracy and requiring minimal cues. - Barriers to Discharge Barriers to Attaining Goals: Other (motivation: To address this, verbal cues are provided.) - Care Plan Anticipated Length of Stay (days): 0 Anticipated DC Destination: Residential/Facility I have led this team conference and agree with the plan. Interventions/Goals: Patient's mother unable to care for patient at this time. He is not able to go home independently. Arrangements for skilled care are pending. This is on the basis predominantly of his tube feedings and wound care.
[2018-05-09] MEDS ORDERED: METOCLOPRAMIDE 10mg/2ml INJECTION IVP PRN (15:19)
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
[2018-05-09] MEDS: D5W 1,000 ML IV SCH (16:32)
[2018-05-09] MEDS: INSULIN DETEMIR 100unit/ml INJECTION SQ SCH (21:30)
[2018-05-09] MEDS: ZOLPIDEM 5 MG TABLET PO PRN (21:31)
[2018-05-10] MEDS: D5W 1,000 ML IV SCH ×2 (00:48→08:13)
[2018-05-10] MEDS: CHLORHEXIDINE 0.12% ORAL RINSE MM SCH ×11 (00:48→21:54)
[2018-05-10] MEDS: BALANCED SALT OP SCH ×6 (01:26→21:54)
[2018-05-10] MEDS: LACRI-LUBE EYE OINT 3.5gm LEFT EYE SCH ×6 (01:26→21:54)
[2018-05-10] MEDS: OXYCODONE 10 MG/0.5 ML PEG PRN ×5 (03:08→20:46)
[2018-05-10] MEDS: PANTOPRAZOLE 40 MG TABLET PEG SCH (06:33)
[2018-05-10] MEDS: FLUCONAZOLE 100 MG TABLET PO SCH (08:09)
[2018-05-10] MEDS: NYSTATIN 500,000 units/5 ml ORAL LIQUID PO SCH ×4 (08:09→21:56)
[2018-05-10] MEDS: CIPROFLOXACIN 750 MG TABLET PO SCH ×2 (08:10→21:55)
[2018-05-10] MEDS: SERTRALINE 50 MG TABLET PO SCH (08:10)
[2018-05-10] MEDS: BACITRACIN OINT 15 GM TP SCH ×2 (08:11→21:57)
[2018-05-10] MEDS: ASPIRIN 325 MG TABLET PO SCH (08:11)
[2018-05-10] MEDS: MetroNIDAZOLE 500 MG TABLET PO SCH ×2 (08:12→17:52)
[2018-05-10] MEDS: CALMOSEPTINE OINTMENT 113gm TUBE TP SCH ×2 (08:12→21:55)
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
[2018-05-10] MEDS ORDERED: ONDANSETRON 4 MG/5 ML PO SCH (13:50)
--- NOTE | 2018-05-10 16:37 | Wound Care Progress Note ---
Wound Center Progress Note: Pt seen for wound follow up. Pt sleeping in bed. Gabby GUERRERO reports he has been applying bacitracin to L mandible wound. At this time the packing strips and secondary dressings are no longer staying in place. Wound not visualized at this time.
[2018-05-10] MEDS: INSULIN DETEMIR 100unit/ml INJECTION SQ SCH (21:56)
[2018-05-11] MEDS: CHLORHEXIDINE 0.12% ORAL RINSE MM SCH ×12 (00:04→23:43)
[2018-05-11] MEDS: OXYCODONE 10 MG/0.5 ML PEG PRN ×6 (00:59→22:24)
[2018-05-11] MEDS: LACRI-LUBE EYE OINT 3.5gm LEFT EYE SCH ×6 (03:04→22:08)
[2018-05-11] MEDS: BALANCED SALT OP SCH ×6 (03:04→21:46)
[2018-05-11] MEDS: PANTOPRAZOLE 40 MG TABLET PEG SCH (05:41)
[2018-05-11] MEDS: ASPIRIN 325 MG TABLET PO SCH (10:13)
[2018-05-11] MEDS: FLUCONAZOLE 100 MG TABLET PO SCH (10:13)
[2018-05-11] MEDS: MetroNIDAZOLE 500 MG TABLET PO SCH ×2 (10:13→18:13)
[2018-05-11] MEDS: CIPROFLOXACIN 750 MG TABLET PO SCH ×2 (10:13→21:49)
[2018-05-11] MEDS: NYSTATIN 500,000 units/5 ml ORAL LIQUID PO SCH ×4 (10:14→21:50)
[2018-05-11] MEDS: BACITRACIN OINT 15 GM TP SCH ×2 (10:15→21:46)
[2018-05-11] MEDS: CALMOSEPTINE OINTMENT 113gm TUBE TP SCH ×2 (10:15→21:46)
[2018-05-11] MEDS: SERTRALINE 50 MG TABLET PO SCH (10:21)
[2018-05-11] MEDS: INSULIN DETEMIR 100unit/ml INJECTION SQ SCH (21:48)
[2018-05-12] MEDS: BALANCED SALT OP SCH ×6 (00:42→21:01)
[2018-05-12] MEDS: CHLORHEXIDINE 0.12% ORAL RINSE MM SCH ×11 (00:43→21:02)
[2018-05-12] MEDS: LACRI-LUBE EYE OINT 3.5gm LEFT EYE SCH ×6 (00:43→21:01)
[2018-05-12] MEDS: OXYCODONE 10 MG/0.5 ML PEG PRN ×4 (05:21→21:11)
[2018-05-12] MEDS: PANTOPRAZOLE 40 MG TABLET PEG SCH (06:34)
[2018-05-12] MEDS: CIPROFLOXACIN 750 MG TABLET PO SCH ×2 (11:22→21:02)
[2018-05-12] MEDS: MetroNIDAZOLE 500 MG TABLET PO SCH ×2 (11:22→18:27)
[2018-05-12] MEDS: FLUCONAZOLE 100 MG TABLET PO SCH (11:22)
[2018-05-12] MEDS: SERTRALINE 50 MG TABLET PO SCH (11:22)
[2018-05-12] MEDS: ASPIRIN 325 MG TABLET PO SCH (11:22)
[2018-05-12] MEDS: CALMOSEPTINE OINTMENT 113gm TUBE TP SCH ×2 (11:23→21:02)
[2018-05-12] MEDS: BACITRACIN OINT 15 GM TP SCH ×2 (11:23→21:01)
[2018-05-12] MEDS: NYSTATIN 500,000 units/5 ml ORAL LIQUID PO SCH ×4 (11:24→21:03)
[2018-05-12] MEDS: INSULIN DETEMIR 100unit/ml INJECTION SQ SCH (21:03)
[2018-05-12] MEDS: ZOLPIDEM 5 MG TABLET PO PRN (22:21)
[2018-05-13] MEDS: CHLORHEXIDINE 0.12% ORAL RINSE MM SCH ×10 (01:48→20:52)
[2018-05-13] MEDS: BALANCED SALT OP SCH ×7 (01:48→20:50)
[2018-05-13] MEDS: LACRI-LUBE EYE OINT 3.5gm LEFT EYE SCH ×7 (01:48→20:50)
[2018-05-13] MEDS: OXYCODONE 10 MG/0.5 ML PEG PRN ×5 (02:24→19:53)
[2018-05-13] MEDS: PANTOPRAZOLE 40 MG TABLET PEG SCH (05:57)
[2018-05-13] MEDS: MetroNIDAZOLE 500 MG TABLET PO SCH ×2 (10:04→17:42)
[2018-05-13] MEDS: FLUCONAZOLE 100 MG TABLET PO SCH (10:04)
[2018-05-13] MEDS: SERTRALINE 50 MG TABLET PO SCH (10:06)
[2018-05-13] MEDS: ASPIRIN 325 MG TABLET PO SCH (10:06)
[2018-05-13] MEDS: NYSTATIN 500,000 units/5 ml ORAL LIQUID PO SCH ×3 (10:06→17:41)
[2018-05-13] MEDS: CIPROFLOXACIN 750 MG TABLET PO SCH ×2 (10:07→20:52)
[2018-05-13] MEDS: CALMOSEPTINE OINTMENT 113gm TUBE TP SCH ×2 (10:25→20:51)
[2018-05-13] MEDS: BACITRACIN OINT 15 GM TP SCH ×2 (10:25→20:51)
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
[2018-05-13] MEDS: INSULIN DETEMIR 100unit/ml INJECTION SQ SCH (21:00)
[2018-05-14] MEDS: CHLORHEXIDINE 0.12% ORAL RINSE MM SCH ×10 (00:22→18:05)
[2018-05-14] MEDS: NYSTATIN 500,000 units/5 ml ORAL LIQUID PO SCH ×4 (00:22→17:19)
[2018-05-14] MEDS: BALANCED SALT OP SCH ×6 (00:22→22:01)
[2018-05-14] MEDS: LACRI-LUBE EYE OINT 3.5gm LEFT EYE SCH ×6 (00:22→22:01)
[2018-05-14] MEDS: OXYCODONE 10 MG/0.5 ML PEG PRN ×6 (00:23→22:04)
[2018-05-14] MEDS: PANTOPRAZOLE 40 MG TABLET PEG SCH (06:29)
[2018-05-14] MEDS: MetroNIDAZOLE 500 MG TABLET PO SCH ×2 (08:44→18:05)
[2018-05-14] MEDS: SERTRALINE 50 MG TABLET PO SCH (08:44)
[2018-05-14] MEDS: ASPIRIN 325 MG TABLET PO SCH (08:44)
[2018-05-14] MEDS: FLUCONAZOLE 100 MG TABLET PO SCH (08:44)
[2018-05-14] MEDS: CIPROFLOXACIN 750 MG TABLET PO SCH ×2 (08:44→22:03)
[2018-05-14] MEDS: BACITRACIN OINT 15 GM TP SCH ×2 (08:45→22:01)
[2018-05-14] MEDS: CALMOSEPTINE OINTMENT 113gm TUBE TP SCH ×3 (08:47→22:02)
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
[2018-05-14] MEDS: EUCERIN CREAM 57gm TP SCH ×2 (17:00→22:04)
[2018-05-14] MEDS: INSULIN DETEMIR 100unit/ml INJECTION SQ SCH (22:04)
[2018-05-14] MEDS: ZOLPIDEM 5 MG TABLET PO PRN (22:07)
[2018-05-15] MEDS: OXYCODONE 10 MG/0.5 ML PEG PRN ×5 (04:59→22:21)
[2018-05-15] MEDS: BALANCED SALT OP SCH ×7 (05:00→22:21)
[2018-05-15] MEDS: LACRI-LUBE EYE OINT 3.5gm LEFT EYE SCH ×7 (05:00→22:24)
[2018-05-15] MEDS: PANTOPRAZOLE 40 MG TABLET PEG SCH ×2 (05:01→09:07)
[2018-05-15] MEDS: CHLORHEXIDINE 0.12% ORAL RINSE MM SCH ×9 (07:05→22:27)
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
[2018-05-15] MEDS: NYSTATIN 500,000 units/5 ml ORAL LIQUID PO SCH ×5 (09:23→22:25)
[2018-05-15] MEDS: ASPIRIN 325 MG TABLET PO SCH (09:24)
[2018-05-15] MEDS: CIPROFLOXACIN 750 MG TABLET PO SCH ×2 (09:25→21:59)
[2018-05-15] MEDS: SERTRALINE 50 MG TABLET PO SCH (09:25)
[2018-05-15] MEDS: FLUCONAZOLE 100 MG TABLET PO SCH (09:25)
[2018-05-15] MEDS: MetroNIDAZOLE 500 MG TABLET PO SCH ×2 (09:25→17:48)
[2018-05-15] MEDS: BACITRACIN OINT 15 GM TP SCH ×2 (09:26→22:24)
[2018-05-15] MEDS: EUCERIN CREAM 57gm TP SCH ×2 (09:26→22:25)
[2018-05-15] MEDS: CALMOSEPTINE OINTMENT 113gm TUBE TP SCH ×2 (09:27→22:22)
[2018-05-15 21:13] VITALS: TEMP 98
[2018-05-15] MEDS: INSULIN DETEMIR 100unit/ml INJECTION SQ SCH (22:26)
[2018-05-16] MEDS: CHLORHEXIDINE 0.12% ORAL RINSE MM SCH ×8 (00:30→14:09)
[2018-05-16] MEDS: LACRI-LUBE EYE OINT 3.5gm LEFT EYE SCH ×5 (00:31→11:46)
[2018-05-16] MEDS: BALANCED SALT OP SCH ×5 (00:31→11:46)
[2018-05-16] MEDS: PANTOPRAZOLE 40 MG TABLET PEG SCH (06:06)
[2018-05-16] MEDS: OXYCODONE 10 MG/0.5 ML PEG PRN ×3 (06:18→14:09)
[2018-05-16 07:58] VITALS: BP 106/55; PULSE 64; RESP 16; O2SAT 93
[2018-05-16] MEDS: BACITRACIN OINT 15 GM TP SCH (08:19)
[2018-05-16] MEDS: CALMOSEPTINE OINTMENT 113gm TUBE TP SCH (08:19)
[2018-05-16] MEDS: MetroNIDAZOLE 500 MG TABLET PO SCH (08:19)
[2018-05-16] MEDS: ASPIRIN 325 MG TABLET PO SCH (08:19)
[2018-05-16] MEDS: CIPROFLOXACIN 750 MG TABLET PO SCH (08:20)
[2018-05-16] MEDS: FLUCONAZOLE 100 MG TABLET PO SCH (08:20)
[2018-05-16] MEDS: NYSTATIN 500,000 units/5 ml ORAL LIQUID PO SCH ×2 (08:20→12:03)
[2018-05-16] MEDS: EUCERIN CREAM 57gm TP SCH (08:20)
[2018-05-16] MEDS: SERTRALINE 50 MG TABLET PO SCH (08:20)
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
--- NOTE | 2018-05-16 13:04 | IRU Team Meeting ---
IRU Team Meeting - Nursing Bladder Management Level of Assist: Modified Independent Bladder Frequency of Accidents: No accidents Bowel Assistive Devices Utilized:: Medication Bowel Management Level of Assist: Modified Independent Bowel Frequency of Accidents: No accidents Vital Signs: Vital Signs - 24 hr 05/15/18 16:00 05/15/18 21:11 05/16/18 07:58 Temperature 98.0 F 98.0 F Pulse Rate 64 58 L 64 Respiratory Rate 16 18 16 Blood Pressure 105/64 104/54 106/55 Pulse Oximetry 96 94 93 05/16/18 08:00 Temperature 98.0 F Pulse Rate 64 Respiratory Rate 16 Blood Pressure 106/55 Pulse Oximetry 93 Current Medications: Aspirin (Asa) 325 mg PO DAILY [facility] Last Admin: 05/16/18 08:19 Dose: 325 mg Bacitracin (Bacitracin Oint) 1 applic TP BID [facility] Last Admin: 05/16/18 08:19 Dose: 1 applic Calamine/Phenol (Risamine Oint) 1 applic TP BID [facility] Last Admin: 05/16/18 08:19 Dose: 1 applic Chlorhexidine Gluconate (Peridex) 15 ml MM Q2HR [facility] Last Admin: 05/16/18 12:03 Dose: Not Given Ciprofloxacin (Cipro 750 Mg) 750 mg PO BID [facility] Last Admin: 05/16/18 08:20 Dose: 750 mg Fluconazole (Diflucan 100 Mg Tablet) 200 mg PO DAILY [facility] Last Admin: 05/16/18 08:20 Dose: 200 mg Insulin Detemir (Levemir) 8 unit SQ HS [facility] Last Admin: 05/15/18 22:26 Dose: 8 unit Lidocaine HCl (Xylocaine Viscous 2%) 15 ml PO Q2HR PRN PRN Reason: Pain Metoclopramide HCl (Reglan) 10 mg PO 0550,0950,1350,1750 [facility] Last Admin: 05/16/18 10:05 Dose: 10 mg Metoclopramide HCl (Reglan) 10 mg PO 2150 [facility] Last Admin: 05/15/18 21:59 Dose: 10 mg Metronidazole (Flagyl) 500 mg PO BIDWM [facility] Last Admin: 05/16/18 08:19 Dose: 500 mg Multi-Ingredient Lotion (Lacrilube) 1 applic LEFT EYE Q4HR [facility] Last Admin: 05/16/18 11:46 Dose: Not Given Multi-Ingredient Ointment (Eucerin) 1 applic TP BID [facility] Last Admin: 05/16/18 08:20 Dose: 1 applic Nystatin (Mycostatin) 5 ml PO QID [facility] Last Admin: 05/16/18 12:03 Dose: Not Given Oxycodone/Acetaminophen (Oxycodone Oral Liquid) 20 mg PEG Q4H PRN PRN Reason: Pain Last Admin: 05/16/18 10:08 Dose: 20 mg Pantoprazole Sodium (Protonix Tab) 40 mg PEG ACB [facility] Last Admin: 05/16/18 06:06 Dose: 40 mg Promethazine HCl (Phenergan Supp) 25 mg TN Q6H PRN Saliva Substitute (Biotene Dry Mouth Oral Rinse) 1 ml PO Q4HR PRN PRN Reason: Dry mouth Last Admin: 05/01/18 16:33 Dose: 1 ml Sertraline HCl (Zoloft) 50 mg PO DAILY [facility] Last Admin: 05/16/18 08:20 Dose: 50 mg Sod Cl/Ca Cl/Mg Cl/Pot Cl (Bss) 15 ml OP Q4HR [facility] Last Admin: 05/16/18 11:46 Dose: Not Given Zolpidem Tartrate (Ambien) 5 mg PO HS PRN PRN Reason: Insomnia Last Admin: 05/14/18 22:07 Dose: 5 mg Current Medical Issues: Wound healing: mandible, intra-oral, left eye, pain management Comments: I certify that I personally led the interdisciplinary team meeting and agree with comments, barriers and goals indicated. Team meeting was held in the patient's room with the patient and the following family members present: patient alone Mr. Osorio is doing well. 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 Continues to require local treatment of left eye as well as oral rinses. Denies dyspnea or chest pain. Tolerating tube feedings adequately. - Physical Therapy Bed, Chair, Wheelchair Transfer Assist: Modified Independent Ambulation Ability: Modified Independent Ambulation Distance: 260 Stair Climbing Ability: Stand By Assist/Supervision Number of Steps Climbed: 12 Car Transfer Ability: Stand By Assist/Supervision Comments: Has met goals. - Occupational Therapy Eating Ability: Stand By Assist/Supervision Grooming Ability: Modified Independent Bathing Ability: Independent Upper Body Dressing Ability: Independent Lower Body Dressing Ability: Independent Tub Transfer Assist: Modified Independent Toileting Assist: Independent Toilet Transfer Assist: Independent Comments: Has met goals is more participatory. - Goals Physical Therapy Goals: 05/09/18: 1.) Participate in 90 minutes of therapy. - met. 05/16/18: 1.) Go through quality measure items and functional tests. 2.) Discharge planning Occupational Therapy Goals: OT goals 05/09/18, 05/16/18: 1.) Lower body dressing tasks independently.- goal met. 2.) Laundry tasks w/ modified independence. - goal met. 3.) Identify 2 leisure/hobbies - goal met. 4.) Tube feedings with modified independence. Speech Therapy Goals: Expression: STG: Patient will provide 3 specific words to describe a given picture or event requiring minimal cues to word retrieval. Pt will define abstract words/concepts with 80% accuracy requiring minimal cues to expansion. Memory: STG: The patient will recall functional information following a delayed and immediate recall requiring minimal cues to increase accuracy. Pt will recall information discussed in therapy by retelling and answering questions with 80% accuracy and requiring minimal cues. Other Patient Goals: find a way to administer ointment to L eye - Barriers to Discharge Barriers to Attaining Goals: Other (placement) - Care Plan Anticipated Length of Stay (days): 0 Anticipated DC Destination: Long Term/Facility I have led this team conference and agree with the plan. Interventions/Goals: Patient will be transferred today to [facility].
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
== END 2018-05-16 14:35 | DRG 560 ==
PROVIDERS: ADMIT Internal Medicine; ATTEND Internal Medicine